=== PATIENT | female | born 2000 ===

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

== ENCOUNTER → 2024-06-08 | Outpatient (REF) | payer BC, OTHER | LOC: M WUC 19:10 | PROVIDERS: ATTEND Physician Assistant | DX: R30.0 Dysuria (principal) ==

== ENCOUNTER → 2025-02-21 | Outpatient (REF) | payer BC, OTHER | LOC: M LAB REF 14:22 | PROVIDERS: ATTEND Nurse Practitioner Family | DX: R30.0 Dysuria (principal) ==

== ENCOUNTER → 2025-08-20 | Outpatient (REF) | payer BC | LOC: M LAB REF 12:26 | PROVIDERS: ATTEND Student in an Organized Health Care Education/Training Program | DX: R30.0 Dysuria (principal) ==